=== PATIENT | male | born 1995 | race Caucasian/White ===

== ENCOUNTER 2017-07-10 13:23 | Emergency (ER) | payer OTHER ==
[~2017-07-10] VITALS: Ht 185.4 cm; Wt 72.6 kg
[2017-07-10] MEDS ORDERED: LIDOCAINE HCL 1% LOCAL INJ 20 ML VIAL INJ ONE (14:00)
[2017-07-10] MEDS ORDERED: BACITRACIN ZINC 0.9GM TP ONE (14:00)
--- NOTE | 2017-07-10 14:49 | Diagnostic Imaging Report ---
PROCEDURE:X-RAY LEFT HAND, THREE OR MORE VIEWS COMPARISON:None. INDICATIONS:LEFT 3RD DIGIT INJURY FINDINGS: There are no fractures, dislocations, lytic or blastic lesions. The bones are well-mineralized. Soft tissue swelling and laceration of the third digit. CONCLUSION: Laceration and swelling of the third digit without bony abnormalities. Dictated by: Nabil Elam M.D. on 07/10/2017 at 14:57 Electronically approved by: Nabil Elam M.D. on 07/10/2017 at 14:57
[2017-07-10] MEDS ORDERED: BUPIVACAINE HCL 0.5% INJ 30 ML VIAL INJ ONE (16:45)
[2017-07-10 19:05] VITALS: BP 130/78
== END 2017-07-10 19:22 | disposition home or self-care (01) ==
LOC: ER 13:23
DX: S67.193A Crushing injury of left middle finger, initial encounter (principal); X58.XXXA Exposure to other specified factors, initial encounter; Y93.89 Activity, other specified; Y99.0 Civilian activity done for income or pay; S61.213A Laceration without foreign body of left middle finger without damage to nail, initial encounter
CPT/HCPCS: 99284; J2001